=== PATIENT | male | born 1945 | race Hispanic/Latino ===

== ENCOUNTER 2017-03-13 13:53 | Inpatient (IN) | payer OTHER ==
[~2017-03-13] VITALS: Ht 170.2 cm; Wt 83.2 kg
[~2017-03-13 13:53] MED LIST: ASPI-555 PO; BICA50TA3 PO; CALCIUM CHLORIDE 100 MG/ML 10 ML SYG IVP ONE; DOXA8TAB2 PO; GLIP5TAB11 PO; HEPARIN SODIUM 1000UNIT/ML 10ML VIAL IV ONE; LISI-617 PO; METF500T6 PO; METO25TA6 PO; SIMV40TA59 PO
[2017-03-13 14:17] LABS: BASOPHILS % (AUTO) 0.6 % (0.0-5.0); EOSINOPHILS % (AUTO) 5.1 % (0.0-8.0); HEMATOCRIT 37.6 % (42-54); LYMPHOCYTES % (AUTO) 26.2 % (21.0-51.0); MEAN CORPUSCULAR HEMOGLOBIN 31.8 pg (27.0-33.0); MEAN CORPUSCULAR HGB CONC 33.8 g/dL (32.0-36.0); MEAN CORPUSCULAR VOLUME 94.2 fL (79-99); NEUTROPHILS % (AUTO) 61.1 % (40.0-77.0); PLATELET COUNT (AUTO) 268 K/uL (130-400); RED BLOOD CELL COUNT(AUTO) 3.99 MIL/uL (4.50-6.20); RED CELL DISTRIBUTION WIDTH 13.3 % (11.0-15.5); WHITE BLOOD COUNT (AUTO) 6.8 K/uL (4.8-10.8)
[2017-03-13 14:27] LABS: POTASSIUM 3.6 mmol/L (3.5-5.1)
[2017-03-13] MEDS ORDERED: ASPIRIN 81MG TAB.CHEW ONE (14:31)
[2017-03-13] MEDS ORDERED: POTASSIUM CHLORIDE 20 MEQ ERTAB PO PRN (15:30)
[2017-03-13] MEDS ORDERED: POTASSIUM CHLORIDE 20MEQ/100ML 100 ML IV PRN (15:30)
[2017-03-13] MEDS ORDERED: ACETAMINOPHEN 325 MG TAB PO PRN ×2 (15:30)
[2017-03-13] MEDS ORDERED: NITROGLYCERIN 0.4 MG SL TAB SL PRN (15:30)
[2017-03-13] MEDS ORDERED: POTASSIUM CHLORIDE 10% ELIXIR 20 MEQ/15 ML UDCUP PO PRN (15:30)
[2017-03-13] MEDS ORDERED: HYDRALAZINE HCL 20 MG/ML VIAL IV PRN (15:30)
[2017-03-13] MEDS ORDERED: GUAIFENESIN-DM 200/20 MG 10 ML PO PRN (15:30)
[2017-03-13] MEDS ORDERED: ONDANSETRON HCL 4 MG/2 ML VIAL IV PRN (15:30)
[2017-03-13] MEDS ORDERED: ACETAMINOPHEN-CODEINE 300/30MG TAB PO PRN ×2 (15:30)
[2017-03-13] MEDS ORDERED: LACTULOSE 20 GM/30 ML UDCUP PO PRN (15:30)
[2017-03-13] MEDS: NITROGLYCERIN 1GM/1 INCH PACKET TD SCH ×2 (15:30→23:28)
[2017-03-13] MEDS ORDERED: MORPHINE SULFATE 4 MG/1ML SYG IV PRN (15:30)
[2017-03-13] MEDS ORDERED: LIDOCAINE HCL-MPF 1% 2ML VIAL IVP PRN (15:30)
[2017-03-13] MEDS ORDERED: MAG HYDROX/AL HYDROX/SIMETH ES 30 ML SUSP UDCUP PO PRN (15:30)
[2017-03-13] MEDS ORDERED: MORPHINE SULFATE 2 MG/ML 1ML SYG IV PRN (15:30)
[2017-03-13] MEDS ORDERED: NITROGLYCERIN 1GM/1 INCH PACKET TD ONE (15:56)
[2017-03-13 16:10] LABS: CREATINE KINASE MB 1.5 ng/mL (0.5-3.6)
[2017-03-13 16:32] VITALS: BP 136/68
[2017-03-13] MEDS ORDERED: METO-408 PO (16:44)
[2017-03-13] MEDS ORDERED: SIMV40TA59 PO (16:44)
[2017-03-13] MEDS ORDERED: METF10004 PO (16:44)
[2017-03-13 18:15] LABS: CREATINE KINASE MB 1.7 ng/mL (0.5-3.6); TROPONIN I 0.21 ng/mL (0.00-0.06)
[2017-03-13 19:30] VITALS: BP 129/69
[2017-03-13] MEDS: FAMOTIDINE 20MG TAB 20 MG TAB PO SCH (22:09)
[2017-03-13] MEDS: METOPROLOL TARTRATE 25 MG TAB PO SCH (22:09)
[2017-03-13 23:23] VITALS: BP 111/63
[2017-03-14] VITALS (13 sets, daily range): BP systolic 113–164; BP diastolic 56–82
[2017-03-14 02:21] LABS: HEMATOCRIT 34.2 % (42-54); MEAN CORPUSCULAR HEMOGLOBIN 31.2 pg (27.0-33.0); MEAN CORPUSCULAR HGB CONC 33.4 g/dL (32.0-36.0); MEAN CORPUSCULAR VOLUME 93.3 fL (79-99); NUCLEATED RED BLOOD CELLS 0.1 % (0.0-0.19); PLATELET COUNT (AUTO) 250 K/uL (130-400); RED BLOOD CELL COUNT(AUTO) 3.67 MIL/uL (4.50-6.20); RED CELL DISTRIBUTION WIDTH 13.4 % (11.0-15.5); WHITE BLOOD COUNT (AUTO) 7.5 K/uL (4.8-10.8)
[2017-03-14 02:50] LABS: CREATINE KINASE MB 1.5 ng/mL (0.5-3.6); POTASSIUM 4.4 mmol/L (3.5-5.1); TROPONIN I 0.37 ng/mL (0.00-0.06)
[2017-03-14 05:01] LABS: INR 1.01 (0.85-1.15); PARTIAL THROMBOPLASTIN TIME 25.4 SEC (26.3-35.5); PROTHROMBIN TIME 10.6 SEC (9.6-11.6)
[2017-03-14] MEDS: NITROGLYCERIN 1GM/1 INCH PACKET TD SCH ×3 (07:30→23:32)
[2017-03-14] MEDS: ASPIRIN 325 MG TABLET PO SCH (09:00)
[2017-03-14] MEDS: FAMOTIDINE 20MG TAB 20 MG TAB PO SCH ×2 (09:00→20:57)
[2017-03-14] MEDS: METOPROLOL TARTRATE 25 MG TAB PO SCH ×2 (09:00→18:37)
[2017-03-14] MEDS ORDERED: HEPARIN SODIUM 1000UNIT/ML 10ML VIAL ONE (09:48)
[2017-03-14] MEDS ORDERED: SODIUM BICARB 50MEQ 50ML VIAL ONE (09:48)
[2017-03-14] MEDS ORDERED: IOPAMIDOL-370 75 ML VIAL IV ONE (09:49)
[2017-03-14] MEDS ORDERED: IOPAMIDOL-370 100 ML VIAL IV ONE (09:49)
[2017-03-14] MEDS ORDERED: NITROGLYCERIN 5 MG/ML 10 ML VIAL IV ONE (09:49)
[2017-03-14] MEDS ORDERED: SODIUM CHLORIDE 0.9% 1000ML 1,000 ML IV SCH (10:55)
[2017-03-14] MEDS ORDERED: DEXTROSE 50%-WATER 50 ML DISP.SYRIN IV PRN (11:00)
[2017-03-14] MEDS ORDERED: GLUCAGON 1MG KIT 1 MG ML IM PRN (11:00)
[2017-03-14] MEDS: INSULIN HUMULIN R 100 UNIT/ML 3ML SQ SCH ×3 (11:30→21:09)
[2017-03-14] MEDS ORDERED: CEFUROXIME 1.5GM+NS 100ML 100 ML IV SCH (11:45)
[2017-03-14 12:15] LABS: HEMOGLOBIN A1C 6.4 % (4.0-6.0)
[2017-03-14] MEDS ORDERED: DOXAZOSIN MESYLATE 2 MG TABLET PO SCH (21:00)
[2017-03-14] MEDS ORDERED: ATORVASTATIN CALCIUM 10 MG TABLET PO SCH (21:00)
[2017-03-15] VITALS (21 sets, daily range): BP systolic 94–149; BP diastolic 52–79
[2017-03-15 03:32] LABS: HEMATOCRIT 34.3 % (42-54); MEAN CORPUSCULAR HEMOGLOBIN 31.7 pg (27.0-33.0); MEAN CORPUSCULAR HGB CONC 33.9 g/dL (32.0-36.0); MEAN CORPUSCULAR VOLUME 93.5 fL (79-99); PLATELET COUNT (AUTO) 238 K/uL (130-400); RED BLOOD CELL COUNT(AUTO) 3.67 MIL/uL (4.50-6.20); RED CELL DISTRIBUTION WIDTH 13.7 % (11.0-15.5); WHITE BLOOD COUNT (AUTO) 6.6 K/uL (4.8-10.8)
[2017-03-15 04:00] LABS: POTASSIUM 3.7 mmol/L (3.5-5.1)
[2017-03-15] MEDS: INSULIN HUMULIN R 100 UNIT/ML 3ML SQ SCH ×3 (06:28→14:57)
[2017-03-15] MEDS: NITROGLYCERIN 1GM/1 INCH PACKET TD SCH ×2 (06:33→14:57)
[2017-03-15] MEDS ORDERED: OCTYL 2-CYANOACRYLATE 1 EACH TP ONE (06:41)
[2017-03-15] MEDS ORDERED: BACITRACIN 50,000 UNIT VIAL ONE (06:41)
[2017-03-15] MEDS ORDERED: PAPAVERINE HCL 30 MG/ML 2ML VIAL ONE (06:41)
[2017-03-15] MEDS ORDERED: NITROGLYCERIN 50 MG/D5% WATER 1 BOT ONE (06:48)
[2017-03-15] MEDS: METOPROLOL TARTRATE 25 MG TAB PO SCH (07:31)
[2017-03-15] MEDS ORDERED: SODIUM CHLORIDE 0.9% 1000ML 1,000 ML IV ONE ×2 (07:42→11:17)
[2017-03-15] MEDS: CEFUROXIME SODIUM 1.5 GM VIAL IVP ONE ×2 (07:50→08:45)
[2017-03-15] MEDS ORDERED: WATER FOR INJECTION,STERILE 20 ML VIAL IJ ONE (08:00)
[2017-03-15] MEDS ORDERED: GLIPIZIDE XL 2.5MG TAB PO SCH (08:00)
[2017-03-15] MEDS ORDERED: FENTANYL CITRATE PF 50 MCG/1 ML 20ML VIAL IJ ONE (08:04)
[2017-03-15] MEDS ORDERED: ROCURONIUM BROMIDE 10MG/1ML 5ML VL ONE (08:04)
[2017-03-15] MEDS ORDERED: CALCIUM CHLORIDE 100 MG/ML 10 ML SYG IVP ONE (08:04)
[2017-03-15] MEDS ORDERED: AMINOCAPROIC ACID 250 MG/ML 20 ML VIAL IV ONE (08:04)
[2017-03-15] MEDS ORDERED: PROTAMINE SULFATE 10 MG/ML 25ML VIAL IV ONE (08:04)
[2017-03-15] MEDS ORDERED: EPINEPHRINE 1 MG/ML AMPULE ONE ×2 (08:04→13:14)
[2017-03-15] MEDS ORDERED: MILRINONE-D5W 20 MG/100 ML 0 ML IV ONE (08:04)
[2017-03-15] MEDS ORDERED: AMIODARONE HCL 900MG/18ML IV ONE (08:04)
[2017-03-15] MEDS ORDERED: GLYCOPYRROLATE 0.2 MG/ML 5 ML VIAL ONE (08:04)
[2017-03-15] MEDS ORDERED: HEPARIN SODIUM 1000UNIT/ML 10ML VIAL ONE (08:04)
[2017-03-15] MEDS ORDERED: NOREPINEPHRINE BITARTRATE 1 MG/1 ML ML IV ONE (08:04)
[2017-03-15] MEDS ORDERED: ESMOLOL HCL 10 MG/ML 10 ML VIAL ONE (08:04)
[2017-03-15] MEDS ORDERED: LIDOCAINE PF 2% 5ML ABBOJECT ONE (08:04)
[2017-03-15] MEDS ORDERED: MIDAZOLAM HCL 1 MG/ML 5ML VIAL ONE (08:04)
[2017-03-15] MEDS ORDERED: PROPOFOL 10 MG/ML 20ML VIAL IV ONE (08:04)
[2017-03-15] MEDS ORDERED: THROMBIN-JMI 5000 UNIT/VIAL TP ONE (08:50)
[2017-03-15 08:58] LABS: ABG BASE EXCESS -0.3 mmol/L (-2.0-3.0); ABG HCO3 25.6 mmol/L (21.0-28.0); ABG OXYGEN SATURATION 74.9 % (95.0-99.0); ABG PCO2 47 mmHg (35-48)
[2017-03-15] MEDS ORDERED: BICALUTAMIDE 50 MG PO SCH (09:00)
[2017-03-15] MEDS: ASPIRIN 325 MG TABLET PO SCH (09:00)
[2017-03-15] MEDS ORDERED: LISINOPRIL 5 MG TABLET PO SCH (09:00)
[2017-03-15] MEDS: FAMOTIDINE 20MG TAB 20 MG TAB PO SCH (09:00)
[2017-03-15] MEDS ORDERED: SODIUM BICARB 50MEQ 50ML VIAL ONE ×4 (09:47→16:00)
[2017-03-15 09:48] LABS: ABG BASE EXCESS -5.7 mmol/L (-2.0-3.0); ABG HCO3 20.7 mmol/L (21.0-28.0); ABG PCO2 44 mmHg (35-48)
[2017-03-15 10:17] LABS: ABG HCO3 25.4 mmol/L (21.0-28.0); ABG OXYGEN SATURATION 99.1 % (95.0-99.0); ABG PCO2 39 mmHg (35-48)
[2017-03-15] MEDS ORDERED: SODIUM CHLORIDE 0.9% 500ML 500 ML IV SCH (10:38)
[2017-03-15] MEDS ORDERED: ACETAMINOPHEN 650 MG SUPPOSITORY RC PRN (10:45)
[2017-03-15] MEDS ORDERED: HYDROCODONE/ACETAMINOPHEN 5/325 MG TAB PO PRN (10:45)
[2017-03-15] MEDS ORDERED: MAGNESIUM 2GM PREMIX 50ML 50 ML IV PRN (10:45)
[2017-03-15] MEDS ORDERED: GLUCAGON 1MG KIT 1 MG ML IM PRN (10:45)
[2017-03-15] MEDS ORDERED: SODIUM CHLORIDE 0.9% 250 ML IV PRN (10:45)
[2017-03-15] MEDS ORDERED: SODIUM CHLORIDE 0.9% 1000ML 1,000 ML IV SCH (10:45)
[2017-03-15] MEDS ORDERED: SODIUM CHLORIDE 0.9% 10 ML VIAL IVP PRN (10:45)
[2017-03-15] MEDS ORDERED: POTASSIUM PHOS 15 mMOL+NS250ML 250 ML IV PRN (10:45)
[2017-03-15] MEDS ORDERED: NOREPINEPHRINE 4MG/NS 250ML 250 ML IV PRN (10:45)
[2017-03-15] MEDS ORDERED: NITROGLYCERIN 50 MG/D5% WATER 250 BOT IV SCH (10:45)
[2017-03-15] MEDS ORDERED: CALCIUM GLUCONATE 1 GM in SODIUM CHLORIDE 0.9% 50 ML IV PRN (10:45)
[2017-03-15] MEDS ORDERED: DEXTROSE 50%-WATER 50 ML DISP.SYRIN IV PRN (10:45)
[2017-03-15] MEDS ORDERED: ALBUMIN (HUMAN) 5% 250 ML IV PRN (10:45)
[2017-03-15] MEDS ORDERED: MORPHINE SULFATE 2 MG/ML 1ML SYG IV PRN (10:45)
[2017-03-15] MEDS ORDERED: PROPOFOL 1000 MG/100 ML 100 ML IV PRN (10:45)
[2017-03-15] MEDS ORDERED: ACETAMINOPHEN 325 MG TAB PO PRN (10:45)
[2017-03-15] MEDS ORDERED: ONDANSETRON HCL 4 MG/2 ML VIAL IV PRN (10:45)
[2017-03-15 11:03] LABS: ABG BASE EXCESS -6.4 mmol/L (-2.0-3.0); ABG HCO3 18.4 mmol/L (21.0-28.0); ABG OXYGEN SATURATION 99.1 % (95.0-99.0); ABG PCO2 34 mmHg (35-48)
[2017-03-15] MEDS ORDERED: EPHEDRINE SULFATE 50 MG/ML AMPULE ONE (11:29)
[2017-03-15 12:03] LABS: HEMATOCRIT 30.9 % (42-54); MEAN CORPUSCULAR HEMOGLOBIN 32.2 pg (27.0-33.0); MEAN CORPUSCULAR HGB CONC 34.1 g/dL (32.0-36.0); MEAN CORPUSCULAR VOLUME 94.5 fL (79-99); PLATELET COUNT (AUTO) 211 K/uL (130-400); RED BLOOD CELL COUNT(AUTO) 3.27 MIL/uL (4.50-6.20); RED CELL DISTRIBUTION WIDTH 13.6 % (11.0-15.5); WHITE BLOOD COUNT (AUTO) 11.8 K/uL (4.8-10.8)
[2017-03-15 12:07] LABS: ABG BASE EXCESS -6.4 mmol/L (-2.0-3.0); ABG HCO3 19.1 mmol/L (21.0-28.0); ABG OXYGEN SATURATION 98.4 % (95.0-99.0); ABG PCO2 38 mmHg (35-48)
[2017-03-15] MEDS: INSULIN REGULAR, HUMAN 3ML 100 UNIT in SODIUM CHLORIDE 0.9% 99 ML IV SCH ×2 (12:14)
[2017-03-15] MEDS: SODIUM BICARB 8.4% 50ML SYRINGE IV PRN ×2 (12:15→16:02)
[2017-03-15 12:21] LABS: CREATININE 1.1 mg/dL (0.5-1.5); MAGNESIUM 1.7 mg/dL (1.80-2.40); PHOSPHORUS 4.9 mg/dL (2.5-4.9); POTASSIUM 3.1 mmol/L (3.5-5.1)
[2017-03-15] MEDS: POTASSIUM CHLORIDE 20MEQ/100ML 100 ML IV PRN ×6 (12:21→21:36)
[2017-03-15] MEDS ORDERED: LIDOCAINE HCL 1% 20 ML VIAL ONE (13:13)
[2017-03-15] MEDS ORDERED: BUPIVACAINE/PF 0.25% 30ML VIAL IJ ONE (13:13)
[2017-03-15] MEDS: MORPHINE SULFATE 4 MG/1ML SYG IV PRN ×2 (13:35→19:17)
[2017-03-15 13:41] LABS: ABG BASE EXCESS -3.7 mmol/L (-2.0-3.0); ABG HCO3 21.8 mmol/L (21.0-28.0); ABG OXYGEN SATURATION 96.2 % (95.0-99.0); ABG PCO2 41 mmHg (35-48)
[2017-03-15 15:31] LABS: MAGNESIUM 2.4 mg/dL (1.80-2.40); POTASSIUM 3.2 mmol/L (3.5-5.1)
[2017-03-15 18:01] LABS: ABG BASE EXCESS 2.1 mmol/L (-2.0-3.0); ABG HCO3 25.7 mmol/L (21.0-28.0); ABG OXYGEN SATURATION 97.8 % (95.0-99.0); ABG PCO2 36 mmHg (35-48)
[2017-03-15] MEDS: CEFUROXIME SODIUM 1.5 GM VIAL IVP SCH (18:10)
[2017-03-15] MEDS: WATER FOR INJECTION,STERILE 20 ML VIAL IJ SCH (18:10)
[2017-03-15] MEDS ORDERED: CEFUROXIME 1.5GM+NS 100ML 100 ML IV SCH (18:45)
[2017-03-15 20:26] LABS: ABG BASE EXCESS 1.2 mmol/L (-2.0-3.0); ABG HCO3 26.3 mmol/L (21.0-28.0); ABG OXYGEN SATURATION 97.8 % (95.0-99.0); ABG PCO2 44 mmHg (35-48)
[2017-03-15 21:46] LABS: ABG BASE EXCESS 2.1 mmol/L (-2.0-3.0); ABG OXYGEN SATURATION 98.1 % (95.0-99.0); ABG PCO2 43 mmHg (35-48)
[2017-03-15] MEDS: HYDROCODONE/ACETAMINOPHEN 5/325 MG TAB PO PRN (23:49)
[2017-03-16] VITALS (15 sets, daily range): BP systolic 103–132; BP diastolic 49–77
[2017-03-16] MEDS: INSULIN REGULAR, HUMAN 3ML 100 UNIT in SODIUM CHLORIDE 0.9% 99 ML IV SCH ×4 (01:04→08:05)
[2017-03-16 04:34] LABS: HEMATOCRIT 31.2 % (42-54); MEAN CORPUSCULAR HEMOGLOBIN 31.3 pg (27.0-33.0); MEAN CORPUSCULAR HGB CONC 33.6 g/dL (32.0-36.0); MEAN CORPUSCULAR VOLUME 93.2 fL (79-99); PLATELET COUNT (AUTO) 219 K/uL (130-400); RED BLOOD CELL COUNT(AUTO) 3.35 MIL/uL (4.50-6.20); RED CELL DISTRIBUTION WIDTH 13.6 % (11.0-15.5); WHITE BLOOD COUNT (AUTO) 8.4 K/uL (4.8-10.8)
[2017-03-16 05:01] LABS: CREATININE 0.8 mg/dL (0.5-1.5); MAGNESIUM 2.1 mg/dL (1.80-2.40); PHOSPHORUS 4.7 mg/dL (2.5-4.9); POTASSIUM 3.7 mmol/L (3.5-5.1)
[2017-03-16] MEDS: POTASSIUM CHLORIDE 20MEQ/100ML 100 ML IV PRN ×2 (05:21→09:33)
[2017-03-16] MEDS: WATER FOR INJECTION,STERILE 20 ML VIAL IJ SCH ×2 (06:11→18:14)
[2017-03-16] MEDS: CEFUROXIME SODIUM 1.5 GM VIAL IVP SCH ×2 (06:11→18:13)
[2017-03-16] MEDS: METOPROLOL TARTRATE 25 MG TAB PO SCH ×2 (08:25→20:11)
[2017-03-16] MEDS: ASPIRIN 81MG TAB.CHEW PO SCH (08:25)
[2017-03-16] MEDS: KETOROLAC TROMETHAMINE 15MG/ML IV SCH ×3 (08:26→21:08)
[2017-03-16] MEDS ORDERED: PANTOPRAZOLE 40 MG/VIAL IV SCH (09:00)
[2017-03-16] MEDS: ATORVASTATIN CALCIUM 20 MG TABLET PO SCH (20:11)
[2017-03-17] MEDS: KETOROLAC TROMETHAMINE 15MG/ML IV SCH ×4 (02:57→20:06)
[2017-03-17 04:02] VITALS: BP 122/66
[2017-03-17 04:38] LABS: BASOPHILS % (AUTO) 0.4 % (0.0-5.0); EOSINOPHILS % (AUTO) 1.4 % (0.0-8.0); HEMATOCRIT 28.3 % (42-54); LYMPHOCYTES % (AUTO) 13.4 % (21.0-51.0); MEAN CORPUSCULAR HEMOGLOBIN 31.6 pg (27.0-33.0); MEAN CORPUSCULAR HGB CONC 33.5 g/dL (32.0-36.0); MEAN CORPUSCULAR VOLUME 94.4 fL (79-99); MONOCYTES % (AUTO) 7.6 % (3.0-13.0); NEUTROPHILS % (AUTO) 77.2 % (40.0-77.0); PLATELET COUNT (AUTO) 166 K/uL (130-400); RED BLOOD CELL COUNT(AUTO) 2.99 MIL/uL (4.50-6.20); RED CELL DISTRIBUTION WIDTH 13.5 % (11.0-15.5); WHITE BLOOD COUNT (AUTO) 7.1 K/uL (4.8-10.8)
[2017-03-17 04:48] LABS: CREATININE 0.9 mg/dL (0.5-1.5); POTASSIUM 3.3 mmol/L (3.5-5.1)
[2017-03-17] MEDS ORDERED: PANTOPRAZOLE SODIUM 40 MG TABLET.DR PO ONE (05:48)
[2017-03-17] MEDS: PANTOPRAZOLE SODIUM 40 MG TABLET.DR PO SCH (05:52)
[2017-03-17 07:00] VITALS: BP 98/57
[2017-03-17] MEDS ORDERED: LIDOCAINE HCL-MPF 1% 2ML VIAL IVP PRN (07:00)
[2017-03-17] MEDS ORDERED: POTASSIUM CHLORIDE 20MEQ/100ML 100 ML IV PRN (07:00)
[2017-03-17] MEDS ORDERED: POTASSIUM CHLORIDE 10% ELIXIR 20 MEQ/15 ML UDCUP PO PRN (07:00)
[2017-03-17] MEDS: INSULIN HUMULIN R 100 UNIT/ML 3ML SQ SCH ×4 (07:10→20:57)
[2017-03-17] MEDS: METOPROLOL TARTRATE 25 MG TAB PO SCH ×2 (07:32→20:06)
[2017-03-17] MEDS: ASPIRIN 81MG TAB.CHEW PO SCH (07:32)
[2017-03-17 11:41] VITALS: BP 116/55
[2017-03-17 16:00] VITALS: BP 126/67
[2017-03-17 19:45] VITALS: BP 106/66
[2017-03-17] MEDS: ATORVASTATIN CALCIUM 20 MG TABLET PO SCH (20:06)
[2017-03-17] MEDS: ENOXAPARIN SODIUM 30 MG/0.3 ML SQ SCH (20:09)
[2017-03-17 23:33] VITALS: BP 118/70
[2017-03-18] MEDS: KETOROLAC TROMETHAMINE 15MG/ML IV SCH ×4 (03:02→20:12)
[2017-03-18 03:59] VITALS: BP 134/73
[2017-03-18] MEDS: PANTOPRAZOLE SODIUM 40 MG TABLET.DR PO SCH (05:53)
[2017-03-18] MEDS: INSULIN HUMULIN R 100 UNIT/ML 3ML SQ SCH ×4 (06:14→20:54)
[2017-03-18 07:00] VITALS: BP 116/67
[2017-03-18] MEDS: DOXAZOSIN MESYLATE 2 MG TABLET PO SCH (09:23)
[2017-03-18] MEDS: ASPIRIN 81MG TAB.CHEW PO SCH (09:23)
[2017-03-18 11:00] VITALS: BP 116/62
[2017-03-18 16:00] VITALS: BP 123/62
[2017-03-18 20:02] VITALS: BP 135/71
[2017-03-18] MEDS: ATORVASTATIN CALCIUM 20 MG TABLET PO SCH (20:12)
[2017-03-18] MEDS: HYDROCODONE/ACETAMINOPHEN 5/325 MG TAB PO PRN (20:13)
[2017-03-18] MEDS: ENOXAPARIN SODIUM 30 MG/0.3 ML SQ SCH (20:14)
[2017-03-18] MEDS ORDERED: METOPROLOL TARTRATE 25 MG TAB PO SCH (21:00)
[2017-03-18 23:44] VITALS: BP 118/73
[2017-03-19] MEDS: KETOROLAC TROMETHAMINE 15MG/ML IV SCH (02:43)
[2017-03-19 03:58] VITALS: BP 131/80
[2017-03-19 04:39] LABS: HEMATOCRIT 29.2 % (42-54); MEAN CORPUSCULAR HEMOGLOBIN 31.7 pg (27.0-33.0); MEAN CORPUSCULAR HGB CONC 34.3 g/dL (32.0-36.0); MEAN CORPUSCULAR VOLUME 92.3 fL (79-99); PLATELET COUNT (AUTO) 200 K/uL (130-400); RED BLOOD CELL COUNT(AUTO) 3.16 MIL/uL (4.50-6.20); RED CELL DISTRIBUTION WIDTH 13.3 % (11.0-15.5); WHITE BLOOD COUNT (AUTO) 4.8 K/uL (4.8-10.8)
[2017-03-19 04:56] LABS: CREATININE 0.8 mg/dL (0.5-1.5); POTASSIUM 3.3 mmol/L (3.5-5.1)
[2017-03-19] MEDS: POTASSIUM CHLORIDE 20 MEQ ERTAB PO PRN ×3 (05:20→09:10)
[2017-03-19] MEDS: INSULIN HUMULIN R 100 UNIT/ML 3ML SQ SCH (06:01)
[2017-03-19] MEDS: PANTOPRAZOLE SODIUM 40 MG TABLET.DR PO SCH (06:38)
[2017-03-19 07:47] VITALS: BP 118/73
[2017-03-19] MEDS ORDERED: ATOR20TA65 PO (08:37)
[2017-03-19] MEDS ORDERED: LISI-617 PO (08:37)
[2017-03-19] MEDS ORDERED: TRAM50TA2 PO (08:37)
[2017-03-19] MEDS ORDERED: METOPROLOL TARTRATE 25 MG TAB PO SCH (09:00)
[2017-03-19] MEDS ORDERED: LISINOPRIL 5 MG TABLET PO SCH ×2 (09:00)
[2017-03-19] MEDS: ASPIRIN 81MG TAB.CHEW PO SCH (09:09)
[2017-03-19] MEDS: DOXAZOSIN MESYLATE 2 MG TABLET PO SCH (09:10)
[2017-03-19 11:26] VITALS: BP 108/63
== END 2017-03-19 18:35 | disposition home or self-care (01) | DRG 233 ==
LOC: EDH 13:53 → EDHIP 14:47 → OBSVTOIN 14:47 → 2AH 16:04 → 2CV 03-15 07:46 → 2DH 03-16 13:24
PROVIDERS: ADMIT Internal Medicine; ATTEND Internal Medicine
PROC: 4A023N7 Measurement of Cardiac Sampling and Pressure, Left Heart, Percutaneous Approach (ICD-10-PCS; principal; 2017-03-14)
PROC: B2111ZZ Fluoroscopy of Multiple Coronary Arteries using Low Osmolar Contrast (ICD-10-PCS; 2017-03-14)
PROC: B2151ZZ Fluoroscopy of Left Heart using Low Osmolar Contrast (ICD-10-PCS; 2017-03-14)
PROC: 021309W Bypass Coronary Artery, Four or More Arteries from Aorta with Autologous Venous Tissue, Open Approach (ICD-10-PCS; 2017-03-15)
PROC: 06BQ4ZZ Excision of Left Saphenous Vein, Percutaneous Endoscopic Approach (ICD-10-PCS; 2017-03-15)
DX: I25.110 Atherosclerotic heart disease of native coronary artery with unstable angina pectoris (principal); I50.31 Acute diastolic (congestive) heart failure; E11.9 Type 2 diabetes mellitus without complications; I25.82 Chronic total occlusion of coronary artery; D62 Acute posthemorrhagic anemia; E78.5 Hyperlipidemia, unspecified; I11.0 Hypertensive heart disease with heart failure; I25.5 Ischemic cardiomyopathy; I45.10 Unspecified right bundle-branch block; N40.0 Benign prostatic hyperplasia without lower urinary tract symptoms; Z72.0 Tobacco use; I25.2 Old myocardial infarction; Z79.82 Long term (current) use of aspirin; Z79.84 Long term (current) use of oral hypoglycemic drugs; Z79.899 Other long term (current) drug therapy; Z92.3 Personal history of irradiation; Z95.5 Presence of coronary angioplasty implant and graft; Z90.79 Acquired absence of other genital organ(s)
CPT/HCPCS: 36415; 36600; 71045; 80048; 80061; 82330; 82435; 82550; 82553; 82803; 82947; 82948; 83036; 83605; 83735; 83874; 84100; 84132; 84295; 84484; 85018; 85025; 85027; 85347; 85610; 85730; 86850; 86900; 86901; 86922; 93005; 93306; 93458; 93880; 94002; 94150; A4344; A7048; C1760; C1894; C9113; J0171; J0282; J0697; J1644; J1650; J1815; J1885; J2001; J2250; J2260; J2270; J2440; J2704; J2720; J3010; J3475; J3480; J3490; J7030; J7040; J7120; P9045; Q9967

== ENCOUNTER 2017-08-12 16:07 | Inpatient (IN) | payer OTHER ==
[~2017-08-12] VITALS: Ht 170.2 cm; Wt 73.5 kg
[~2017-08-12 16:07] MED LIST changes: +ATOR20TA65 PO; -BICA50TA3 PO; +BICA50TA7 PO; -CALCIUM CHLORIDE 100 MG/ML 10 ML SYG IVP ONE; -HEPARIN SODIUM 1000UNIT/ML 10ML VIAL IV ONE; +METF10004 PO; -METF500T6 PO; +METO-408 PO; -METO25TA6 PO; -SIMV40TA59 PO; +TRAM50TA2 PO
[2017-08-12] MEDS ORDERED: SODIUM CHLORIDE 0.9% 500ML 500 ML IV ONE (16:55)
[2017-08-12] MEDS ORDERED: MEROPENEM 1 GM VIAL ONE (16:56)
[2017-08-12] MEDS ORDERED: ONDANSETRON HCL 4 MG/2 ML VIAL ONE (16:56)
[2017-08-12] MEDS ORDERED: ALBUMIN (HUMAN) 25% 100 ML IV ONE (16:57)
[2017-08-12 16:59] LABS: BASOPHILS % (AUTO) 0.6 % (0.0-5.0); EOSINOPHILS % (AUTO) 0.2 % (0.0-8.0); HEMATOCRIT 28.5 % (42-54); LYMPHOCYTES % (AUTO) 4.3 % (21.0-51.0); MEAN CORPUSCULAR HEMOGLOBIN 28.2 pg (27.0-33.0); MEAN CORPUSCULAR HGB CONC 32.1 g/dL (32.0-36.0); MEAN CORPUSCULAR VOLUME 87.8 fL (79-99); MONOCYTES % (AUTO) 5.3 % (3.0-13.0); NEUTROPHILS % (AUTO) 89.6 % (40.0-77.0); PLATELET COUNT (AUTO) 507 K/uL (130-400); RED BLOOD CELL COUNT(AUTO) 3.25 MIL/uL (4.50-6.20); RED CELL DISTRIBUTION WIDTH 17.2 % (11.0-15.5); WHITE BLOOD COUNT (AUTO) 21.5 K/uL (4.8-10.8)
[2017-08-12 17:13] LABS: INR 1.1 (0.85-1.15); PARTIAL THROMBOPLASTIN TIME 28.7 SEC (26.3-35.5); PROTHROMBIN TIME 11.5 SEC (9.6-11.6)
[2017-08-12 17:16] LABS: CREATININE 1.9 mg/dL (0.5-1.5); POTASSIUM 4.3 mmol/L (3.5-5.1)
[2017-08-12 17:20] LABS: BILIRUBIN,TOTAL 0.4 mg/dL (0.2-1.0); TOTAL PROTEIN, SERUM 5.4 g/dL (6.0-8.3)
[2017-08-12 17:31] LABS: CREATINE KINASE MB 1.5 ng/mL (0.5-3.6); MYOGLOBIN 94 ng/mL (10-92); TROPONIN I < 0.04 ng/mL (0.00-0.06)
[2017-08-12 17:34] LABS: CREATINE KINASE, TOTAL 552 U/L (21-232)
[2017-08-12] MEDS ORDERED: SODIUM CHLORIDE 0.9% 1000ML 1,000 ML IV ONE ×2 (18:57→19:14)
[2017-08-12] MEDS ORDERED: CEFEPIME HCL 1 GM VIAL ONE (19:14)
[2017-08-12] MEDS ORDERED: GLUCAGON 1MG KIT 1 MG ML IM PRN (19:30)
[2017-08-12] MEDS ORDERED: VANCOMYCIN PROTOCOL PER PHARMACY IV SCH (19:30)
[2017-08-12] MEDS ORDERED: SODIUM CHLORIDE 0.9% 1000ML 1,000 ML IV SCH (19:30)
[2017-08-12] MEDS: CEFEPIME HCL 2 GM VIAL IVP SCH (20:00)
[2017-08-12] MEDS: INSULIN R PO SS1 SQ SCH (21:00)
[2017-08-13] VITALS (7 sets, daily range): BP systolic 90–115; BP diastolic 58–74
[2017-08-13] MEDS ORDERED: PRED5SOL PO (01:48)
[2017-08-13] MEDS ORDERED: METF10004 PO (01:48)
[2017-08-13] MEDS ORDERED: ONDA4SOL2 PO (01:48)
[2017-08-13 01:51] LABS: APPEARANCE,URINE Turbid (CLEAR); BILIRUBIN,URINE Negative (NEGATIVE); COLOR,URINE Yellow (YELLOW); GLUCOSE, URINE (UA) Negative (NEGATIVE); KETONES,URINE Trace mg/dL (NEGATIVE); LEUKOCYTE ESTERASE ,URINE Moderate (NEGATIVE); NITRATE,URINE Negative (NEGATIVE); OCCULT BLOOD,URINE Large (NEGATIVE); PROTEIN,URINE 300 (NEGATIVE)
[2017-08-13 02:22] LABS: BACTERIA,URINE Moderate /HPF (None Seen); WBC,URINE 51-100 /HPF (0-1); YEAST,URINE BUDDING Moderate /HPF (None Seen)
[2017-08-13] MEDS ORDERED: COMPOUND IV MISC 1 EACH IVSOLN MISC PRN (02:30)
[2017-08-13] MEDS: VANCOMYCIN 1GM+NS 250ML 500 ML IV SCH (02:50)
[2017-08-13] MEDS ORDERED: ONDANSETRON ODT 4 MG TAB PO PRN (03:00)
[2017-08-13 04:40] LABS: HEMATOCRIT 26.4 % (42-54); MEAN CORPUSCULAR HEMOGLOBIN 28.3 pg (27.0-33.0); MEAN CORPUSCULAR HGB CONC 32.1 g/dL (32.0-36.0); MEAN CORPUSCULAR VOLUME 87.9 fL (79-99); PLATELET COUNT (AUTO) 399 K/uL (130-400); RED BLOOD CELL COUNT(AUTO) 3.01 MIL/uL (4.50-6.20); RED CELL DISTRIBUTION WIDTH 17.5 % (11.0-15.5); WHITE BLOOD COUNT (AUTO) 20.6 K/uL (4.8-10.8)
[2017-08-13 04:50] LABS: ALBUMIN 2.1 g/dL (3.5-5.0); BILIRUBIN,TOTAL 0.5 mg/dL (0.2-1.0); CREATININE 1.6 mg/dL (0.5-1.5); POTASSIUM 3.9 mmol/L (3.5-5.1)
[2017-08-13] MEDS: INSULIN R PO SS1 SQ SCH ×4 (05:57→21:00)
[2017-08-13] MEDS ORDERED: METFORMIN HCL 500 MG TABLET PO SCH (08:00)
[2017-08-13] MEDS: CEFEPIME HCL 2 GM VIAL IVP SCH ×2 (08:03→21:09)
[2017-08-13] MEDS: PREDNISONE 5 MG TABLET PO SCH ×2 (08:04→17:13)
[2017-08-13] MEDS: GLIPIZIDE 5 MG TABLET PO SCH (08:04)
[2017-08-13] MEDS: LISINOPRIL 5 MG TABLET PO SCH (08:05)
[2017-08-13] MEDS: BICALUTAMIDE 50 MG PO SCH (09:00)
[2017-08-13] MEDS: ***HM***Metoprolol Succinate 12.5 MG PO SCH (09:00)
[2017-08-13] MEDS ORDERED: COMPOUND IV REFRIGERATED 1 EACH IVSOLN MISC PRN (11:45)
[2017-08-13] MEDS: METFORMIN HCL 500 MG TABLET PO SCH (17:13)
[2017-08-13] MEDS: ATORVASTATIN CALCIUM 20 MG TABLET PO SCH (21:12)
[2017-08-13] MEDS: VANCOMYCIN 1.25 GM in SODIUM CHLORIDE 0.9% 250 ML IV SCH (21:12)
[2017-08-13] MEDS: ENOXAPARIN SODIUM 80 MG/0.8 ML SQ SCH (21:48)
[2017-08-14] MEDS: VANCOMYCIN 1GM+NS 250ML 500 ML IV SCH (02:32)
[2017-08-14 03:33] VITALS: BP 111/67
[2017-08-14 03:46] LABS: HEMATOCRIT 28.3 % (42-54); MEAN CORPUSCULAR HEMOGLOBIN 27.7 pg (27.0-33.0); MEAN CORPUSCULAR HGB CONC 31.4 g/dL (32.0-36.0); MEAN CORPUSCULAR VOLUME 88.1 fL (79-99); PLATELET COUNT (AUTO) 439 K/uL (130-400); RED BLOOD CELL COUNT(AUTO) 3.21 MIL/uL (4.50-6.20); RED CELL DISTRIBUTION WIDTH 17.5 % (11.0-15.5); WHITE BLOOD COUNT (AUTO) 23.6 K/uL (4.8-10.8)
[2017-08-14 04:03] LABS: ALBUMIN 1.9 g/dL (3.5-5.0); BILIRUBIN,TOTAL 0.4 mg/dL (0.2-1.0); CREATININE 1.7 mg/dL (0.5-1.5); POTASSIUM 3.9 mmol/L (3.5-5.1); TOTAL PROTEIN, SERUM 5.1 g/dL (6.0-8.3)
[2017-08-14] MEDS: INSULIN R PO SS1 SQ SCH ×4 (06:54→21:00)
[2017-08-14 07:05] VITALS: BP 105/61
[2017-08-14] MEDS: ENOXAPARIN SODIUM 80 MG/0.8 ML SQ SCH ×2 (09:41→21:30)
[2017-08-14] MEDS: METFORMIN HCL 500 MG TABLET PO SCH (09:43)
[2017-08-14] MEDS: LISINOPRIL 5 MG TABLET PO SCH (09:43)
[2017-08-14] MEDS: GLIPIZIDE 5 MG TABLET PO SCH (09:44)
[2017-08-14] MEDS: PREDNISONE 5 MG TABLET PO SCH ×2 (09:44→17:45)
[2017-08-14] MEDS: ***HM***Metoprolol Succinate 12.5 MG PO SCH (09:45)
[2017-08-14] MEDS: BICALUTAMIDE 50 MG PO SCH (09:45)
[2017-08-14] MEDS: CEFEPIME HCL 2 GM VIAL IVP SCH ×2 (09:48→21:28)
[2017-08-14 11:13] VITALS: BP 87/62
[2017-08-14] MEDS: METOCLOPRAMIDE 10 MG/2 ML VIAL IVP SCH ×3 (12:11→23:56)
[2017-08-14] MEDS: DEXTROSE 50%-WATER 50 ML DISP.SYRIN IV PRN (12:11)
[2017-08-14 15:35] VITALS: BP 92/50
[2017-08-14] MEDS: VANCOMYCIN 1.25 GM in SODIUM CHLORIDE 0.9% 250 ML IV SCH (15:44)
[2017-08-14 19:46] VITALS: BP 91/57
[2017-08-14] MEDS ORDERED: DRONABINOL 2.5 MG CAP PO ONE (21:00)
[2017-08-14] MEDS: ATORVASTATIN CALCIUM 20 MG TABLET PO SCH (21:29)
[2017-08-14 23:33] VITALS: BP 85/58
[2017-08-15 03:49] VITALS: BP 92/59
[2017-08-15] MEDS: INSULIN R PO SS1 SQ SCH ×4 (06:18→21:00)
[2017-08-15] MEDS: METOCLOPRAMIDE 10 MG/2 ML VIAL IVP SCH ×4 (06:18→23:32)
[2017-08-15 07:00] VITALS: BP 94/51
[2017-08-15] MEDS: BICALUTAMIDE 50 MG PO SCH (09:00)
[2017-08-15] MEDS: ***HM***Metoprolol Succinate 12.5 MG PO SCH (09:00)
[2017-08-15] MEDS: VANCOMYCIN 1.25 GM in SODIUM CHLORIDE 0.9% 250 ML IV SCH (09:00)
[2017-08-15] MEDS: LISINOPRIL 5 MG TABLET PO SCH (09:00)
[2017-08-15] MEDS: PREDNISONE 5 MG TABLET PO SCH ×2 (09:12→20:42)
[2017-08-15] MEDS: CEFEPIME HCL 2 GM VIAL IVP SCH ×2 (09:12→20:41)
[2017-08-15] MEDS: ENOXAPARIN SODIUM 80 MG/0.8 ML SQ SCH (09:14)
[2017-08-15 11:00] VITALS: BP 91/59
[2017-08-15 16:00] VITALS: BP 105/67
[2017-08-15] MEDS: FUROSEMIDE 10 MG/ML 4ML VIAL IV SCH (16:11)
[2017-08-15 19:27] VITALS: BP 98/63
[2017-08-15] MEDS: DOXYCYCLINE HYCLATE 100 MG TABLET PO SCH (20:42)
[2017-08-15] MEDS: ATORVASTATIN CALCIUM 20 MG TABLET PO SCH (20:42)
[2017-08-15] MEDS: DRONABINOL 2.5 MG CAP PO PRN (23:32)
[2017-08-15 23:38] VITALS: BP 103/69
[2017-08-16] MEDS: FUROSEMIDE 10 MG/ML 4ML VIAL IV SCH ×3 (03:30→22:55)
[2017-08-16 03:32] VITALS: BP 95/65
[2017-08-16 05:02] LABS: HEMATOCRIT 26.9 % (42-54); MEAN CORPUSCULAR HEMOGLOBIN 29.2 pg (27.0-33.0); MEAN CORPUSCULAR HGB CONC 33.3 g/dL (32.0-36.0); MEAN CORPUSCULAR VOLUME 87.8 fL (79-99); NUCLEATED RED BLOOD CELLS 0.1 % (0.0-0.19); PLATELET COUNT (AUTO) 395 K/uL (130-400); RED BLOOD CELL COUNT(AUTO) 3.07 MIL/uL (4.50-6.20)
[2017-08-16 05:20] LABS: CREATININE 1.9 mg/dL (0.5-1.5); MAGNESIUM 1.4 mg/dL (1.80-2.40); PHOSPHORUS 3.7 mg/dL (2.5-4.9); POTASSIUM 4.1 mmol/L (3.5-5.1)
[2017-08-16] MEDS: INSULIN R PO SS1 SQ SCH ×4 (06:01→20:12)
[2017-08-16] MEDS: METOCLOPRAMIDE 10 MG/2 ML VIAL IVP SCH ×3 (06:08→18:27)
[2017-08-16 07:00] VITALS: BP 104/63
[2017-08-16] MEDS ORDERED: LIDOCAINE HCL 1% 20 ML VIAL INJ SCH (07:45)
[2017-08-16] MEDS ORDERED: MAGNESIUM 2GM PREMIX 50ML 50 ML IV SCH ×2 (07:45→13:15)
[2017-08-16] MEDS: CEFEPIME HCL 2 GM VIAL IVP SCH ×2 (09:00→19:42)
[2017-08-16] MEDS: BICALUTAMIDE 50 MG PO SCH (09:00)
[2017-08-16] MEDS: DOXYCYCLINE HYCLATE 100 MG TABLET PO SCH ×2 (09:00→19:42)
[2017-08-16] MEDS: ***HM***Metoprolol Succinate 12.5 MG PO SCH (09:00)
[2017-08-16] MEDS: PREDNISONE 5 MG TABLET PO SCH ×2 (09:01→19:47)
[2017-08-16] MEDS: ENOXAPARIN SODIUM 80 MG/0.8 ML SQ SCH (09:02)
[2017-08-16 11:33] VITALS: BP 97/60
[2017-08-16 16:17] VITALS: BP 99/62
[2017-08-16] MEDS: ATORVASTATIN CALCIUM 20 MG TABLET PO SCH (19:42)
[2017-08-16 20:00] VITALS: BP 105/72
[2017-08-16] MEDS ORDERED: VANCOMYCIN 500MG+NS 100ML 100 ML IV SCH (21:00)
[2017-08-16] MEDS: DRONABINOL 2.5 MG CAP PO PRN (21:37)
[2017-08-16] MEDS ORDERED: FUROSEMIDE 10 MG/ML 10ML VIAL IVP STA (22:44)
[2017-08-16] MEDS ORDERED: FUROSEMIDE 10 MG/ML 2ML VIAL ONE (22:52)
[2017-08-17] VITALS (7 sets, daily range): BP systolic 94–126; BP diastolic 62–79
[2017-08-17] MEDS: METOCLOPRAMIDE 10 MG/2 ML VIAL IVP SCH ×4 (00:35→18:12)
[2017-08-17 00:40] LABS: ABG BASE EXCESS -6.1 mmol/L (-2.0-3.0); ABG HCO3 16.3 mmol/L (21.0-28.0); ABG OXYGEN SATURATION 99.7 % (95.0-99.0); ABG PCO2 26 mmHg (35-48)
[2017-08-17] MEDS ORDERED: MAGNESIUM 2GM PREMIX 50ML 50 ML IV PRN (02:00)
[2017-08-17] MEDS ORDERED: LIDOCAINE HCL-MPF 1% 2ML VIAL IVP PRN (03:00)
[2017-08-17] MEDS ORDERED: POTASSIUM CHLORIDE 20 MEQ ERTAB PO PRN (03:00)
[2017-08-17] MEDS ORDERED: POTASSIUM CHLORIDE 10% ELIXIR 20 MEQ/15 ML UDCUP PO PRN (03:00)
[2017-08-17] MEDS ORDERED: POTASSIUM CHLORIDE 20MEQ/100ML 100 ML IV PRN (03:00)
[2017-08-17] MEDS: FUROSEMIDE 10 MG/ML 4ML VIAL IV SCH ×2 (03:00→18:12)
[2017-08-17] MEDS: INSULIN HUMULIN R 100 UNIT/ML 3ML SQ SCH ×3 (06:00→17:45)
[2017-08-17 06:28] LABS: HEMATOCRIT 28.6 % (42-54); MEAN CORPUSCULAR HEMOGLOBIN 28.5 pg (27.0-33.0); MEAN CORPUSCULAR HGB CONC 32.1 g/dL (32.0-36.0); MEAN CORPUSCULAR VOLUME 88.7 fL (79-99); PLATELET COUNT (AUTO) 434 K/uL (130-400); RED BLOOD CELL COUNT(AUTO) 3.23 MIL/uL (4.50-6.20); RED CELL DISTRIBUTION WIDTH 17.7 % (11.0-15.5)
[2017-08-17 06:38] LABS: WHITE BLOOD COUNT (AUTO) 31.1 K/uL (4.8-10.8)
[2017-08-17 06:50] LABS: BILIRUBIN,TOTAL 0.5 mg/dL (0.2-1.0); CREATININE 2.4 mg/dL (0.5-1.5); MAGNESIUM 1.8 mg/dL (1.80-2.40); PHOSPHORUS 4.3 mg/dL (2.5-4.9); POTASSIUM 3.8 mmol/L (3.5-5.1); TOTAL PROTEIN, SERUM 5.7 g/dL (6.0-8.3)
[2017-08-17 07:40] LABS: MONOCYTES % (MANUAL) 2 % (2-9); SEGMENTED NEUTROPHILS % 98 % (40-70)
[2017-08-17 07:41] LABS: MAN.DIFF COMMENT-IMPRESSION MANUAL DIFFERENTIAL; PLATELET MORPHOLOGY COMMENT SLIGHT INCREASED
[2017-08-17] MEDS: CEFEPIME HCL 2 GM VIAL IVP SCH (08:59)
[2017-08-17] MEDS: DOXYCYCLINE HYCLATE 100 MG TABLET PO SCH ×2 (09:00→21:00)
[2017-08-17] MEDS: PREDNISONE 5 MG TABLET PO SCH ×2 (09:00→20:00)
[2017-08-17] MEDS: ***HM***Metoprolol Succinate 12.5 MG PO SCH (09:00)
[2017-08-17] MEDS: ENOXAPARIN SODIUM 80 MG/0.8 ML SQ SCH (09:00)
[2017-08-17] MEDS: BICALUTAMIDE 50 MG PO SCH (09:00)
[2017-08-17] MEDS: ATORVASTATIN CALCIUM 20 MG TABLET PO SCH (21:00)
[2017-08-17] MEDS ORDERED: MORPHINE SULFATE 4 MG/1ML SYG ONE (21:53)
[2017-08-18] MEDS: CEFEPIME HCL 2 GM VIAL IVP SCH ×3 (00:24→20:01)
[2017-08-18] MEDS: METOCLOPRAMIDE 10 MG/2 ML VIAL IVP SCH ×4 (00:25→18:16)
[2017-08-18] MEDS: FUROSEMIDE 10 MG/ML 4ML VIAL IV SCH ×3 (01:59→18:17)
[2017-08-18 03:00] VITALS: BP 98/62
[2017-08-18] MEDS: INSULIN HUMULIN R 100 UNIT/ML 3ML SQ SCH ×4 (06:00→17:22)
[2017-08-18 07:58] VITALS: BP 93/64
[2017-08-18] MEDS: ***HM***Metoprolol Succinate 12.5 MG PO SCH (09:00)
[2017-08-18] MEDS: BICALUTAMIDE 50 MG PO SCH (09:00)
[2017-08-18] MEDS: DOXYCYCLINE HYCLATE 100 MG TABLET PO SCH ×2 (10:07→22:02)
[2017-08-18] MEDS: PREDNISONE 5 MG TABLET PO SCH ×2 (10:07→20:01)
[2017-08-18] MEDS: ENOXAPARIN SODIUM 80 MG/0.8 ML SQ SCH (10:07)
[2017-08-18 11:46] VITALS: BP 160/61
[2017-08-18 17:18] VITALS: BP 102/65
[2017-08-18 20:18] VITALS: BP 112/64
[2017-08-18] MEDS: ATORVASTATIN CALCIUM 20 MG TABLET PO SCH (22:02)
[2017-08-18 23:28] VITALS: BP 98/65
[2017-08-19] MEDS: METOCLOPRAMIDE 10 MG/2 ML VIAL IVP SCH ×4 (00:12→18:46)
[2017-08-19] MEDS: FUROSEMIDE 10 MG/ML 4ML VIAL IV SCH ×3 (02:39→18:47)
[2017-08-19 04:15] VITALS: BP 98/61
[2017-08-19] MEDS: INSULIN HUMULIN R 100 UNIT/ML 3ML SQ SCH ×4 (06:00→18:00)
[2017-08-19 07:15] VITALS: BP 103/68
[2017-08-19] MEDS: PREDNISONE 5 MG TABLET PO SCH ×2 (08:00→20:37)
[2017-08-19] MEDS: DOXYCYCLINE HYCLATE 100 MG TABLET PO SCH ×2 (09:00→20:37)
[2017-08-19] MEDS: BICALUTAMIDE 50 MG PO SCH (09:00)
[2017-08-19] MEDS: ***HM***Metoprolol Succinate 12.5 MG PO SCH (09:00)
[2017-08-19] MEDS: CEFEPIME HCL 2 GM VIAL IVP SCH ×2 (10:12→20:38)
[2017-08-19] MEDS: ENOXAPARIN SODIUM 80 MG/0.8 ML SQ SCH (10:13)
[2017-08-19 11:30] VITALS: BP 105/69
[2017-08-19 15:30] VITALS: BP 99/46
[2017-08-19] MEDS: MORPHINE SULFATE 2 MG/ML 1ML SYG IVP PRN ×2 (15:44→18:59)
[2017-08-19 20:00] VITALS: BP 109/69
[2017-08-19] MEDS: ATORVASTATIN CALCIUM 20 MG TABLET PO SCH (20:37)
[2017-08-19] MEDS: MORPHINE SULFATE 4 MG/1ML SYG IVP PRN ×2 (21:17→23:13)
[2017-08-20] VITALS: BP 100/64
[2017-08-20] MEDS: METOCLOPRAMIDE 10 MG/2 ML VIAL IVP SCH ×2 (00:11→06:00)
[2017-08-20] MEDS: MORPHINE SULFATE 4 MG/1ML SYG IVP PRN ×4 (02:39→09:37)
[2017-08-20] MEDS: FUROSEMIDE 10 MG/ML 4ML VIAL IV SCH ×2 (03:04→13:08)
[2017-08-20 04:00] VITALS: BP 106/66
[2017-08-20] MEDS: INSULIN HUMULIN R 100 UNIT/ML 3ML SQ SCH ×2 (05:40)
[2017-08-20 08:00] VITALS: BP 90/60
[2017-08-20] MEDS: PREDNISONE 5 MG TABLET PO SCH (08:00)
[2017-08-20] MEDS: ENOXAPARIN SODIUM 80 MG/0.8 ML SQ SCH (09:00)
[2017-08-20] MEDS: BICALUTAMIDE 50 MG PO SCH (09:00)
[2017-08-20] MEDS: ***HM***Metoprolol Succinate 12.5 MG PO SCH (09:00)
[2017-08-20] MEDS: DOXYCYCLINE HYCLATE 100 MG TABLET PO SCH (09:00)
[2017-08-20] MEDS: CEFEPIME HCL 2 GM VIAL IVP SCH (09:37)
[2017-08-20] MEDS ORDERED: MORPHINE SULFATE 4 MG/1ML SYG IVP PRN ×2 (10:15→13:15)
[2017-08-20] MEDS ORDERED: LORAZEPAM 2 MG/ML 1 ML VIAL IVP PRN ×2 (10:15→13:00)
[2017-08-20] MEDS ORDERED: LORAZEPAM 2 MG/ML 1 ML VIAL ONE ×2 (10:38→13:06)
[2017-08-20] MEDS: DEXTROSE 50%-WATER 50 ML DISP.SYRIN IV PRN (11:48)
[2017-08-20 12:00] VITALS: BP 79/56
[2017-08-20] MEDS ORDERED: LORAZEPAM 2 MG/ML 1 ML VIAL IVP SCH (13:00)
[2017-08-20] MEDS ORDERED: PHARMACY COMMUNICATION MISC SCH (13:00)
[2017-08-20] MEDS ORDERED: BISACODYL 10 MG SUPP.RECT RC ONE (14:00)
== END 2017-08-20 14:59 | disposition hospice, inpatient (51) | DRG 871 ==
LOC: EDH 16:07 → EDHIP 18:48 → 2DH 08-13 01:46
PROVIDERS: ADMIT Internal Medicine Critical Care Medicine; ATTEND Internal Medicine Critical Care Medicine
PROC: 5A09357 Assistance with Respiratory Ventilation, Less than 24 Consecutive Hours, Continuous Positive Airway Pressure (ICD-10-PCS; principal; 2017-08-17)
DX: A41.9 Sepsis, unspecified organism (principal); I26.99 Other pulmonary embolism without acute cor pulmonale; I50.43 Acute on chronic combined systolic (congestive) and diastolic (congestive) heart failure; J96.01 Acute respiratory failure with hypoxia; C79.51 Secondary malignant neoplasm of bone; E46 Unspecified protein-calorie malnutrition; I13.0 Hypertensive heart and chronic kidney disease with heart failure and stage 1 through stage 4 chronic kidney disease, or unspecified chronic kidney disease; K56.7 Ileus, unspecified; N17.9 Acute kidney failure, unspecified; R64 Cachexia; C61 Malignant neoplasm of prostate; D64.9 Anemia, unspecified; E11.22 Type 2 diabetes mellitus with diabetic chronic kidney disease; E78.5 Hyperlipidemia, unspecified; I25.10 Atherosclerotic heart disease of native coronary artery without angina pectoris; I25.5 Ischemic cardiomyopathy; I45.10 Unspecified right bundle-branch block; K31.84 Gastroparesis; K74.60 Unspecified cirrhosis of liver; N18.9 Chronic kidney disease, unspecified; E11.43 Type 2 diabetes mellitus with diabetic autonomic (poly)neuropathy; D89.9 Disorder involving the immune mechanism, unspecified; N40.0 Benign prostatic hyperplasia without lower urinary tract symptoms; R62.7 Adult failure to thrive; Z51.5 Encounter for palliative care; Z66 Do not resuscitate; Z74.01 Bed confinement status; I25.2 Old myocardial infarction; Z79.01 Long term (current) use of anticoagulants; Z92.21 Personal history of antineoplastic chemotherapy; Z92.3 Personal history of irradiation; Z95.1 Presence of aortocoronary bypass graft; Z98.61 Coronary angioplasty status; Z28.21 Immunization not carried out because of patient refusal; Z68.25 Body mass index [BMI] 25.0-25.9, adult
CPT/HCPCS: 36415; 36600; 71045; 71046; 78580; 80048; 80053; 80202; 81001; 82550; 82553; 82803; 82948; 83605; 83735; 83874; 83880; 84100; 84484; 85025; 85027; 85378; 85610; 85730; 87040; 87088; 93005; 93306; 93970; 94660; 97039; 99291; A4218; A9540; J0692; J1650; J1940; J2060; J2185; J2270; J2405; J2765; J3370; J3475; J7030; J7040; J7070; J7512; P9046; Q0167